=== PATIENT | female | born 1985 | race Hispanic/Latino ===

== ENCOUNTER 2018-04-18 13:47 | Emergency (ER) | payer OTHER ==
[~2018-04-18] VITALS: Ht 157.5 cm; Wt 74.8 kg
--- OUTSIDE RECORDS SUMMARY | 2018-04-18 13:50 | XMS REPORT | Clinical Summary ---
Author Author [facility] Organization [facility] Address Unknown Phone Unavailable Care Team Providers Care Talent Development Analyst Name Role Phone Asked, No Pcp PCP Unavailable Allergies Active Allergy Reactions Severity Noted Date Comments Celecoxib 08/19/2017 Divalproex 11/29/2017 Phenytoin Sodium Extended 08/19/2017 Current Medications Prescription Sig. Disp. Refills Start End Date Status Date buPROPion XL (WELLBUTRIN Take 300 mg by mouth Active XL) 300 MG 24 hr tablet daily. escitalopram (LEXAPRO) 20 Take 20 mg by mouth Active MG tablet daily. levETIRAcetam (KEPPRA) Take 500 mg by mouth 2 Active 500 MG tablet (two) times a day. LORAZepam (ATIVAN) 2 MG Take 2 mg by mouth 3 Active tablet (three) times a day as needed for seizures. Active Problems Problem Noted Date Seizure (HCC) 08/19/2017 Encounters Date Type Specialty Care Team Description 11/30/2017 Orders Only Faisal Chau 11/29/2017 Emergency Emergency Medicine Mindi Shields MD Anxiety (Primary Dx) - 11/30/2017 11/10/2017 Emergency Emergency Medicine Yusuf Hodgson MD Closed head injury, initial encounter (Primary Dx); Drug intoxication without complication 08/19/2017 Emergency General Internal Medicine Alondra Lopez, Seizure (Primary Dx); - Noncompliance with 08/20/2017 Jason Castle MD medication regimen; Drug abuse; Pelvic pain after 04/17/2017 Social History Tobacco Use Types Packs/Day Years Used Date Never Smoker Smokeless Tobacco: Never Used Alcohol Use Drinks/Week oz/Week Comments No Sex Assigned at Date Recorded Not on file Last Filed Vital Signs Vital Sign Reading Time Taken Blood Pressure 91/51 11/30/2017 1:30 AM CDT Pulse 108 11/30/2017 1:30 AM CDT Temperature 37.4 C (99.4 F) 11/29/2017 10:51 PM CDT Respiratory Rate 14 11/30/2017 1:30 AM CDT Oxygen Saturation 96% 11/30/2017 1:30 AM CDT Inhaled Oxygen - - Concentration Weight 68 kg (150 lb) 11/10/2017 1:08 AM CDT Height 154.9 cm (5' 1") 11/29/2017 10:51 PM CDT Body Mass Index 28.34 11/10/2017 1:08 AM CDT Plan of Treatment Health Maintenance Due Date Last Done Comments CERVICAL CANCER SCREENING 2006 INFLUENZA VACCINE 01/08/2018 Procedures Procedure Name Priority Date/Time Associated Diagnosis Comments XR CHEST 1 VW STAT 11/30/2017 Results for this 12:21 AM CDT procedure are in the results section. ECG ED PRELIMINARY Routine 11/29/2017 Results for this INTERPRETATION 11:18 PM CDT procedure are in the results section. TROPONIN Routine 11/29/2017 Results for this 11:10 PM CDT procedure are in the results section. B NATRIURETIC PEPTIDE Routine 11/29/2017 Results for this 11:10 PM CDT procedure are in the results section. CREATINE KINASE, TOTAL Routine 11/29/2017 Results for this (CPK) 11:10 PM CDT procedure are in the results section. ZZESTIMATED GFR Routine 11/29/2017 Results for this 11:10 PM CDT procedure are in the results section. COMPREHENSIVE METABOLIC Routine 11/29/2017 Results for this PANEL 11:10 PM CDT procedure are in the results section. PARTIAL THROMBOPLASTIN Routine 11/29/2017 Results for this TIME (PTT) 11:10 PM CDT procedure are in the results section. PROTHROMBIN TIME WITH INR Routine 11/29/2017 Results for this 11:10 PM CDT procedure are in the results section. HC COMPLETE BLD COUNT Routine 11/29/2017 Results for this W/AUTO DIFF 11:10 PM CDT procedure are in the results section. ECG 12-LEAD STAT 11/29/2017 Results for this 11:02 PM CDT procedure are in the results section. ZZESTIMATED GFR STAT 11/10/2017 Results for this 3:38 AM CDT procedure are in the results section. BASIC METABOLIC PANEL STAT 11/10/2017 Results for this 3:38 AM CDT procedure are in the results section. HC COMPLETE BLD COUNT STAT 11/10/2017 Results for this W/AUTO DIFF 3:38 AM CDT procedure are in the results section. CT HEAD WO CONTRAST STAT 11/10/2017 Results for this 2:23 AM CDT procedure are in the results section. HC COMPLETE BLD COUNT Routine 08/20/2017 Results for this W/AUTO DIFF 6:40 AM CDT procedure are in the results section. HEPATIC FUNCTION PANEL STAT 08/20/2017 Results for this 4:20 AM CDT procedure are in the results section. HEPATITIS C ANTIBODY STAT 08/20/2017 Results for this 4:20 AM CDT procedure are in the results section. HEPATITIS B SURFACE STAT 08/20/2017 Results for this ANTIBODY 4:20 AM CDT procedure are in the results section. HIV 1, 2 ANTIBODY Routine 08/20/2017 Results for this 4:20 AM CDT procedure are in the results section. ZZESTIMATED GFR Routine 08/20/2017 Results for this 4:20 AM CDT procedure are in the results section. BASIC METABOLIC PANEL Routine 08/20/2017 Results for this 4:20 AM CDT procedure are in the results section. AL CRITICAL CARE, E/M Routine 08/19/2017 Results for this 30-74 MINUTES 12:27 PM CDT procedure are in the results section. URINE DRUGS OF ABUSE STAT 08/19/2017 Results for this SCREEN 12:24 PM CDT procedure are in the results section. URINALYSIS SCREEN AND STAT 08/19/2017 Results for this MICROSCOPY, WITH REFLEX 12:24 PM CDT procedure are in the TO CULTURE results section. GRAM STAIN STAT 08/19/2017 Results for this 12:24 PM CDT procedure are in the results section. URINE CULTURE STAT 08/19/2017 Results for this 12:24 PM CDT procedure are in the results section. ZZESTIMATED GFR STAT 08/19/2017 Results for this 12:05 PM CDT procedure are in the results section. ACETAMINOPHEN LEVEL STAT 08/19/2017 Results for this 12:05 PM CDT procedure are in the results section. SALICYLATE LEVEL STAT 08/19/2017 Results for this 12:05 PM CDT procedure are in the results section. ALCOHOL LEVEL, BLOOD STAT 08/19/2017 Results for this 12:05 PM CDT procedure are in the results section. HCG QUALITATIVE, SERUM STAT 08/19/2017 Results for this SCREEN 12:05 PM CDT procedure are in the results section. COMPREHENSIVE METABOLIC STAT 08/19/2017 Results for this PANEL 12:05 PM CDT procedure are in the results section. HC COMPLETE BLD COUNT STAT 08/19/2017 Results for this W/AUTO DIFF 12:05 PM CDT procedure are in the results section. after 04/17/2017 Results * XR Chest 1 Vw (11/30/2017 12:21 AM) Narrative Performed At EXAMINATION: [facility]ST [facility]W [facility] CLINICAL HISTORY: 01/05/2009 chest x-ray COMPARISON:None. IMPRESSION: The lungs are clear. No pleural effusion or pneumothorax. The cardiomediastinal silhouette is normal. No acute osseous abnormalities. [id number] Procedure Note Hm Interface, Radiology Results Incoming - 11/30/2017 12:34 AM CDT EXAMINATION: XR CHEST 1 VW CLINICAL HISTORY: 01/05/2009 chest x-ray COMPARISON: None. IMPRESSION: The lungs are clear. No pleural effusion or pneumothorax. The cardiomediastinal silhouette is normal. No acute osseous abnormalities. [facility]-[id number] Performing Organization Address City/State/Zipcode Phone Number [facility] [address] [place] [address] * ECG ED Preliminary Interpretation - NOT AN ORDER (11/29/2017 11:18 PM) Narrative Performed At Mindi Roque MD 11/30/2017 12:29 AM ECG ED Preliminary Interpretation - Not an Order Performed by: MINDI SHIELDS Authorized by: MINDI SHIELDS ECG reviewed by ED Physician in the absence of a test puller: yes Previous ECG: Previous ECG:Unavailable Interpretation: Interpretation: abnormal Rate: ECG rate:107 ECG rate assessment: tachycardic Rhythm: Rhythm: sinus rhythm Ectopy: Ectopy: none QRS: QRS axis:Normal Conduction: Conduction: normal ST segments: ST segments:Normal * Estimated GFR (11/29/2017 11:10 PM) Only the most recent of 4 results within the time period is included. GFR Non Af Amer >90 mL/min/1.73 m2 [facility] OF PATHOLOGY AND GENOMIC MEDICINE GFR Af Amer >90 mL/min/1.73 m2 [facility] DEPARTMENT OF Comment: PATHOLOGY AND Chronic kidney disease: <60 GENOMIC MEDICINE mL/min/1.73m2 Kidney failure: <15 mL/min/1.73m2 The estimated GFR is calculated from the IDMS-traceable Modification of Diet in Renal Disease Equation. The accuracy of the calculation is poor when the creatinine is normal. Calculated values >90 mL/min/1.73m2 are not reported. This equation has not been validated in children (<18 years), women, the elderly (>70 years), or ethnic groups other than Caucasians and Americans. Specimen Plasma specimen Performing Organization Address [facility] Phone Number [place] [address] [address] [place] [phone] PATHOLOGY AND [employer] [facility] * Troponin (11/29/2017 11:10 PM) Troponin <0.10 0.00 - 0.10 ng/mL [facility] DEPARTMENT OF Comment: PATHOLOGY AND 0.11 - 1.49 GENOMIC MEDICINE ng/mlMay indicate increased risk of acute coronary syndrome. >=1.5 ng/ml Consistent with acute myocardial infarction. The diagnostic value of a single normal or non-diagnostic result is questionable.Serial samples at 2-6 hour intervals are required to rule out acute myocardial injury. Specimen Plasma specimen Performing Organization Address [facility] Phone Number [place] [address] [place] [address] PATHOLOGY AND [employer] * Partial thromboplastin time, activated (11/29/2017 11:10 PM) PTT 30.0 23.0 - 36.0 sec [facility] DEPARTMENT OF Comment: PATHOLOGY AND PTT therapeutic range for [employer] unfractionated heparin is 61.0-112.0 seconds which corresponds to Anti-Xa 0.3-0.7 U/ml. Specimen Blood Performing Organization Address [facility] Phone [place] [address] [facility] [place] [phone] PATHOLOGY AND [employer] * Prothrombin time with INR (11/29/2017 11:10 PM) Prothrombin time 13.7 12.0 - 15.0 sec [facility] OF PATHOLOGY AND [employer] [facility] INR 1.0 [facility]PART[facility] OF Comment: PATHOLOGY AND The International Normalized GENOMIC MEDICINE Ratio (INR) is a therapeutic monitoring tool for patients who are stable on oral anticoagulant therapy. An INR of 2.0-3.0 is suggested for deep vein thrombosis/pulmonary embolism. Specimen Blood Performing Organization Address [facility] Cent[facility] Phone Number [facility] [place] [address]Josh Hughes. [place] [phone] PATHOLOGY AND GENOMIC MEDICINE * CBC with platelet and differential (11/29/2017 11:10 PM) Only the most recent of 4 results within the time period is included. WBC 14.57 (H) 4.50 - 11.00 k/uL [facility] OF PATHOLOGY AND GENOMIC MEDICINE RBC 4.47 4.20 - 5.50 m/uL [facility] OF PATHOLOGY AND GENOMIC MEDICINE HGB 14.9 12.0 - 16.0 g/dL [facility] OF PATHOLOGY AND GENOMIC MEDICINE HCT 42.8 37.0 - 47.0 % [facility] OF PATHOLOGY AND GENOMIC MEDICINE MCV 95.7 82.0 - 100.0 fL [facility] OF PATHOLOGY AND GENOMIC MEDICINE MCH 33.3 27.0 - 34.0 pg [facility] OF PATHOLOGY AND GENOMIC MEDICINE MCHC 34.8 31.0 - 37.0 g/dL [facility] OF PATHOLOGY AND GENOMIC MEDICINE RDW - SD 46.1 37.0 - 55.0 fL [facility] OF PATHOLOGY AND GENOMIC MEDICINE MPV 8.8 8.8 - 13.2 fL [facility] OF PATHOLOGY AND GENOMIC MEDICINE Platelet count 478 (H) 150 - 400 k/uL [facility] OF PATHOLOGY AND GENOMIC MEDICINE Neutrophils 57.5 39.0 - 69.0 % [facility] OF PATHOLOGY AND GENOMIC MEDICINE Lymphocytes 33.3 25.0 - 45.0 % [facility] OF PATHOLOGY AND GENOMIC MEDICINE Monocytes 6.6 0.0 - 10.0 % [facility] OF PATHOLOGY AND GENOMIC MEDICINE Eosinophils 1.6 0.0 - 5.0 % [facility] OF PATHOLOGY AND GENOMIC MEDICINE Basophils 0.5 0.0 - 1.0 % [facility] OF PATHOLOGY AND GENOMIC MEDICINE Immature granulocytes 0.5 0.0 - 1.0 % [facility] OF PATHOLOGY AND GENOMIC MEDICINE Specimen Blood Performing Organization Address City/State/Zipcode Phone Number [facility] [place] [address]Josh Hughes. [place] [phone] PATHOLOGY AND GENOMIC MEDICINE * B natriuretic peptide (11/29/2017 11:10 PM) BNP <3 0 - 100 pg/mL [facility] OF PATHOLOGY AND GENOMIC MEDICINE Performing Organization Address City/[facility]/Zipcode Phone Number [facility] [place] [address]Josh Hughes. [place] [phone] PATHOLOGY AND GENOMIC MEDICINE * Creatine kinase, total (CPK) (11/29/2017 11:10 PM) Creatine kinase 174 35 - 200 U/L [facility] OF PATHOLOGY AND GENOMIC MEDICINE Specimen Plasma specimen Performing Organization Address City/[facility] Centercode Phone Number [facility] [id number]. [place] [phone] PATHOLOGY AND GENOMIC [facility] * Comprehensive metabolic panel (11/29/2017 11:10 PM) Only the most recent of 2 results within the time period is included. Sodium 137 135 - 148 mEq/L [facility] OF PATHOLOGY AND GENOMIC MEDICINE Potassium 3.8 3.5 - 5.0 mEq/L [facility] OF PATHOLOGY AND GENOMIC MEDICINE Chloride 95 (L) 99 - 109 mEq/L [facility] OF PATHOLOGY AND GENOMIC MEDICINE CO2 24 24 - 31 mEq/L [facility] OF PATHOLOGY AND GENOMIC MEDICINE Anion gap 18@ANIO (H) 7 - 15 mEq/L [facility] OF PATHOLOGY AND GENOMIC MEDICINE BUN 22 8 - 24 mg/dL [facility] OF PATHOLOGY AND GENOMIC MEDICINE Creatinine 0.7 0.5 - 1.5 mg/dL [facility] OF PATHOLOGY AND GENOMIC MEDICINE Glucose 110 (H) 65 - 99 mg/dL [facility] OF PATHOLOGY AND GENOMIC MEDICINE Calcium 9.8 8.6 - 10.6 mg/dL [facility] PATHOLOGY AND GENOMIC MEDICINE Protein 8.4 (H) 6.3 - 8.2 g/dL [facility] OF PATHOLOGY AND GENOMIC MEDICINE Albumin 4.0 3.5 - 5.0 g/dL [facility] OF PATHOLOGY AND GENOMIC MEDICINE A/G ratio 0.9 0.7 - 3.8 [facility] OF PATHOLOGY AND GENOMIC MEDICINE Alkaline phosphatase 76 30 - 115 U/L [facility] OF PATHOLOGY AND GENOMIC MEDICINE AST 39 15 - 46 U/L [facility] PATHOLOGY AND GENOMIC MEDICINE ALT 53 10 - 55 U/L [facility] PATHOLOGY AND GENOMIC MEDICINE Total bilirubin 0.7 0.2 - 1.2 mg/dL [facility] PATHOLOGY AND GENOMIC MEDICINE Specimen Plasma specimen Performing Organization Address City/[facility]/Zipcode Phone Number [facility] [place] [address]Josh Hughes. [place] [phone] PATHOLOGY AND GENOMIC MEDICINE * ECG 12 lead (11/29/2017 11:02 PM) Ventricular rate 107 [facility] Atrial rate 107 [facility] AL interval 128 [facility] QRSD interval 84 [facility] QT interval 334 [facility] QTC interval 445 [facility] P axis 1 -4 [facility] QRS axis 1 64 [facility] MUSE T wave axis 24 [facility] MUSE EKG impression Sinus tachycardia-Otherwise [facility] MUSE normal ECG-- Performing Organization Address [facility] Centercode Phone Number [facility] MUSE [address] [place] [address] * Basic metabolic panel (11/10/2017 3:38 AM) Only the most recent of 2 results within the time period is included. Sodium 140 135 - 148 mEq/L [facility] DEPARTMENT OF PATHOLOGY AND GENOMIC MEDICINE Potassium 3.4 (L) 3.5 - 5.0 mEq/L [facility] DEPARTMENT OF PATHOLOGY AND GENOMIC MEDICINE Chloride 106 99 - 109 mEq/L [facility] DEPARTMENT OF PATHOLOGY AND GENOMIC MEDICINE CO2 25 24 - 31 mEq/L [facility] DEPARTMENT OF PATHOLOGY AND GENOMIC MEDICINE Anion gap 9@ANIO 7 - 15 mEq/L [facility] DEPARTMENT OF PATHOLOGY AND GENOMIC MEDICINE BUN 9 8 - 24 mg/dL [facility] DEPARTMENT OF PATHOLOGY AND GENOMIC MEDICINE Creatinine 0.6 0.5 - 1.5 mg/dL [facility] DEPARTMENT OF PATHOLOGY AND GENOMIC MEDICINE Glucose 106 (H) 65 - 99 mg/dL [facility] DEPARTMENT OF PATHOLOGY AND GENOMIC MEDICINE Calcium 8.8 8.6 - 10.6 mg/dL [facility] DEPARTMENT OF PATHOLOGY AND GENOMIC MEDICINE Specimen Plasma specimen Performing Organization Address [facility] Centercomo Phone Number [facility] [address] [facility] [address] [place] [address] PATHOLOGY AND GENOMIC MEDICINE * CT Head Wo Contrast (11/10/2017 2:23 AM) Narrative Performed At Examination:CT HEAD WO CONTRAST RADIANT Clinical History: Stabbed on the top of her headseizure Comparison: None. CT scan of the brain was performed without intravenous contrast. CT scans are performed using radiation dose reduction techniques.Technical factors are evaluated and adjusted to ensure appropriate moderation of exposure.Automated dose management technology is applied to adjust radiation exposure while achieving a diagnostic quality image. No mass effect or midline shift is seen. The ventricles are normal in size. No intracranial hemorrhage is seen. The visualized bony structures shows no acute abnormality. Bourgeois-white junctions are preserved. IMPRESSION: 1. No acute or focal intracranial abnormality identified. [facility]-[id number] Procedure Note Interface, Radiology Results Incoming - 11/10/2017 3:57 AM CDT Examination: CT HEAD WO CONTRAST Clinical History: Stabbed on the top of her head seizure Comparison: None. CT scan of the brain was performed without intravenous contrast. CT scans are performed using radiation dose reduction techniques. Technical factors are evaluated and adjusted to ensure appropriate moderation of exposure. Automated dose management technology is applied to adjust radiation exposure while achieving a diagnostic quality image. No mass effect or midline shift is seen. The ventricles are normal in size. No intracranial hemorrhage is seen. The visualized bony structures shows no acute abnormality. Bourgeois-white junctions are preserved. IMPRESSION: 1. No acute or focal intracranial abnormality identified. [facility]-[id number] Performing Organization Address [facility]/[place] [address] * Hepatitis C antibody (08/20/2017 4:20 AM) Hepatitis C Ab Non-reactive Non-reactive [facility] DEPARTMENT OF PATHOLOGY AND GENOMIC MEDICINE Specimen Blood Performing Organization Address [facility] [place] [address] PATHOLOGY AND GENOMIC MEDICINE * HIV 1, 2 antibody (08/20/2017 4:20 AM) HIV 1, 2 antibody Non-reactive Non-reactive [facility] DEPARTMENT OF PATHOLOGY AND GENOMIC MEDICINE Specimen Blood Performing Organization Address [facility] Centercode Phone Number [address] [address] PATHOLOGY AND GENOMIC MEDICINE * Hepatitis B surface antibody (08/20/2017 4:20 AM) Hepatitis B surface Ab Reactive (A) Non-reactive [facility] DEPARTMENT OF PATHOLOGY AND GENOMIC MEDICINE Specimen Blood Performing Organization Address [facility] Centercode Phone Number [facility] [address] [place] [address] PATHOLOGY AND GENOMIC MEDICINE * Hepatic function panel (08/20/2017 4:20 AM) Albumin 3.3 (L) 3.5 - 5.0 g/dL [facility] DEPARTMENT OF PATHOLOGY AND GENOMIC MEDICINE Total bilirubin <0.2 0.2 - 1.2 mg/dL [facility] DEPARTMENT OF PATHOLOGY AND GENOMIC MEDICINE Bilirubin direct <0.2 0.0 - 0.4 mg/dL [facility] DEPARTMENT OF PATHOLOGY AND GENOMIC MEDICINE Alkaline phosphatase 64 30 - 115 U/L [facility] DEPARTMENT OF PATHOLOGY AND GENOMIC MEDICINE Protein 6.5 6.3 - 8.2 g/dL [facility] DEPARTMENT OF PATHOLOGY AND GENOMIC MEDICINE ALT 21 10 - 55 U/L [facility] DEPARTMENT OF PATHOLOGY AND GENOMIC MEDICINE AST 25 15 - 46 U/L [facility] DEPARTMENT OF PATHOLOGY AND GENOMIC MEDICINE Specimen Plasma specimen Performing Organization Address City/State/Zipcode Phone Number [facility] [address] [facility] 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 failure or compromise Critical care was time spent personally by me on the following activities:Development of treatment plan with patient or surrogate, discussions with consultants, discussions with primary provider, evaluation of patient's response to treatment, examination of patient, obtaining history from patient or surrogate, review of old charts, re-evaluation of patient's condition, pulse oximetry, ordering and review of radiographic studies, ordering and review of laboratory studies and ordering and performing treatments and interventions José Miguel 'yes' if you are taking over critical care for this patient from another provider.: no * Urinalysis screen and microscopy, with reflex to culture (08/19/2017 12:24 PM) Specimen site Clean catch [facility] DEPARTMENT OF PATHOLOGY AND GENOMIC MEDICINE Color, UA Yellow YELLOW [facility] DEPARTMENT OF PATHOLOGY AND GENOMIC MEDICINE Appearance, UA Hazy (A) Clear [facility] DEPARTMENT OF PATHOLOGY AND GENOMIC MEDICINE Specific gravity, UA 1.017 1.005 - 1.030 [facility] DEPARTMENT OF PATHOLOGY AND GENOMIC MEDICINE pH, UA 5.5 5.0 - 8.0 [facility] DEPARTMENT OF PATHOLOGY AND GENOMIC MEDICINE Protein, UA Trace (A) Negative [facility]MENT OF PATHOLOGY AND GENOMIC MEDICINE Glucose, UA Negative Negative [facility]MENT OF PATHOLOGY AND GENOMIC MEDICINE Ketones, UA Negative Negative [facility]MENT OF PATHOLOGY AND GENOMIC MEDICINE Bilirubin, UA Negative Negative [facility] DEPARTMENT OF PATHOLOGY AND GENOMIC MEDICINE Blood, UA Negative Negative [facility] DEPARTMENT OF PATHOLOGY AND GENOMIC MEDICINE Nitrite, UA Negative NEGATIVE [facility] DEPARTMENT OF PATHOLOGY AND GENOMIC MEDICINE Urobilinogen, UA <2.0 <2.0 E.U./dL [facility] DEPARTMENT OF PATHOLOGY AND GENOMIC MEDICINE Leukocyte esterase, UA Large (A) Negative [facility] DEPARTMENT OF PATHOLOGY AND GENOMIC MEDICINE Epithelial cells, UA 2 0 - 15 /HPF [facility] DEPARTMENT OF PATHOLOGY AND GENOMIC MEDICINE WBC, UA >200 (H) 0 - 5 /Hpf [facility] DEPARTMENT OF PATHOLOGY AND GENOMIC MEDICINE RBC, UA 3 0 - 5 /HPF [facility] DEPARTMENT OF PATHOLOGY AND GENOMIC MEDICINE Bacteria, UA None seen None seen [facility] DEPARTMENT OF PATHOLOGY AND GENOMIC MEDICINE Yeast, UA None seen None Seen [facility] DEPARTMENT OF PATHOLOGY AND GENOMIC MEDICINE Yeast with pseudohyphae, None seen [facility] DEPARTMENT [facility] PATHOLOGY AND GENOMIC MEDICINE Specimen Urine Performing Organization Address City/[facility] Centercode Phone Number [address] [place] [address] PATHOLOGY AND GENOMIC MEDICINE * Urine drugs of abuse screen (08/19/2017 12:24 PM) Amphetamine screen, urine Positive (A) [facility] DEPARTMENT OF PATHOLOGY AND GENOMIC MEDICINE Barbiturate screen, urine Negative [facility] OF PATHOLOGY AND GENOMIC MEDICINE Benzodiazepine screen, Negative [facility] DEPARTMENT OF urine PATHOLOGY AND GENOMIC MEDICINE Cannabinoid screen, urine Positive (A) [facility] DEPARTMENT OF PATHOLOGY AND GENOMIC MEDICINE Cocaine screen, urine Negative [facility] DEPARTMENT OF PATHOLOGY AND GENOMIC MEDICINE Methadone metabolite Negative [facility] DEPARTMENT OF (EDDP), urine PATHOLOGY AND GENOMIC MEDICINE Opiates screen, urine Negative [facility] DEPARTMENT OF PATHOLOGY AND GENOMIC MEDICINE Oxycodone screen, urine Negative [facility] DEPARTMENT OF PATHOLOGY AND GENOMIC MEDICINE Phencyclidine screen, Negative [facility] DEPARTMENT OF urine PATHOLOGY AND GENOMIC MEDICINE Tricyclic screen, urine Negative [facility] DEPARTMENT OF Comment: PATHOLOGY AND Drug screen minimum GENOMIC MEDICINE concentration of detectability Amphetamines 1000 ng/mL Barbiturates 200 ng/mL Benzodiazepines 300 ng/mL Cocaine 300 ng/mL Methadone 300 ng/mL Opiates 300 ng/mL Oxycodone 300 ng/mL Phencyclidine 25 ng/mL Cannabinoids 50 ng/mL Tricyclics 1000 ng/mL Negative test results indicates presumptive evidence of lack of clinically significant drug concentration in this urine specimen. Positive test results are presumptive evidence of clinically significant drug concentration in this urine specimen. Testing performed for medical purposes only. Specimen Urine Performing Organization Address City/State/Zipcode Phone Number [address] [place] [address] PATHOLOGY AND GENOMIC MEDICINE * Gram stain (08/19/2017 12:24 PM) Gram stain result Moderate WBC's [facility] DEPARTMENT OF Occasional Gram negative rods PATHOLOGY AND Comment: GENOMIC MEDICINE Specimen Information Specimen Source: Urine Specimen Site: Clean catch Specimen Urine Performing Organization Address City/State/Zipcode Phone Number [facility] DEPARTMENT OF [address] [place] [address] PATHOLOGY AND GENOMIC MEDICINE * Urine culture (08/19/2017 12:24 PM) Urine culture isolate Escherichia coli [facility] DEPARTMENT OF >10-5 cfu/ml PATHOLOGY AND (A) GENOMIC MEDICINE Comment: Specimen Information Specimen Source: Urine Specimen Site: Clean catch Specimen Urine Organism Antibiotic Method Susceptibility Escherichia coli Ampicillin SONYA <=2 mcg/mL: Susceptible Escherichia coli Amoxicillin/Clavulanate SONYA <=2/1 mcg/mL: Susceptible Escherichia coli Amikacin SONYA <=4 mcg/mL: Susceptible Escherichia coli Aztreonam SONYA <=1 mcg/mL: Susceptible Escherichia coli Ceftazidime SONYA <=0.5 mcg/mL: Susceptible Escherichia coli Ciprofloxacin SONYA <=0.5 mcg/mL: Susceptible Escherichia coli Ceftriaxone SONYA <=0.5 mcg/mL: Susceptible Escherichia coli Cefuroxime Sodium SONYA <=4 mcg/mL: Susceptible Escherichia coli Cefazolin SONYA <=1 mcg/mL: Susceptible Escherichia coli Cefepime SONYA <=0.5 mcg/mL: Susceptible Escherichia coli Nitrofurantoin SONYA <=16 mcg/mL: Susceptible Escherichia coli Cefoxitin SONYA <=4 mcg/mL: Susceptible Escherichia coli Gentamicin SONYA <=1 mcg/mL: Susceptible Escherichia coli Imipenem SONYA <=0.25 mcg/mL: Susceptible Escherichia coli Levofloxacin SONYA <=1 mcg/mL: Susceptible Escherichia coli Meropenem SONYA <=0.125 mcg/mL: Susceptible Escherichia coli Tobramycin SONYA 1 mcg/mL: Susceptible Escherichia coli Ampicillin/Sulbactam SONYA 2/1 mcg/mL: Susceptible Escherichia coli Trimethoprim/Sulfamethoxa SONYA <=0.5/9.5 mcg/mL: zole Susceptible Escherichia coli Tetracycline SONYA <=1 mcg/mL: Susceptible Escherichia coli Piperacillin/Tazobactam SONYA <=2/4 mcg/mL: Susceptible Escherichia coli Ertapenem SONYA <=0.125 mcg/mL: Susceptible Escherichia coli Tigecycline SONYA <=0.5 mcg/mL: Susceptible Performing Organization Address City/State/[facility] Phone Number [facility] DEPARTMENT OF [address] [place] [address] PATHOLOGY AND GENOMIC MEDICINE * hCG qualitative, serum screen (08/19/2017 12:05 PM) hCG qualitative, serum NegativeComment: Sensitivity: [facility] DEPARTMENT OF 10 mlUhCG/mL in Serum PATHOLOGY AND GENOMIC MEDICINE Specimen Blood Performing Organization Address [facility] Phone Number [facility] DEPARTMENT [address] [place] [address] PATHOLOGY AND GENOMIC MEDICINE * Alcohol level, blood (08/19/2017 12:05 PM) Alcohol None Detected mg/dl [facility] DEPARTMENT OF PATHOLOGY AND GENOMIC MEDICINE Alcohol percent None Detected 0.00 - 0.08 % [facility] DEPARTMENT OF Comment: PATHOLOGY AND Normal GENOMIC MEDICINE None Detected Legal Intoxication in [place]80 mg/dL (0.08%) - Whole Blood Toxic Concentration 200 mg/dL (0.2%) Potentially Fatal3 50 - 500 mg/dL (0.35 - 0.5%) Specimen Plasma specimen Performing Organization Address [facility] Phone Number [facility] DEPARTMENT [address] [place] [address] PATHOLOGY AND GENOMIC MEDICINE * Acetaminophen level (08/19/2017 12:05 PM) Acetaminophen level <15.0 10.0 - 30.0 ug/mL [facility] DEPARTMENT OF PATHOLOGY AND GENOMIC MEDICINE Specimen Plasma specimen Performing Organization Address [facility] Phone Number [facility] [place] [address] PATHOLOGY AND GENOMIC MEDICINE * Salicylate level (08/19/2017 12:05 PM) Salicylate <0.3 (L) 5.0 - 30.0 mg/dL [facility] DEPARTMENT OF Comment: PATHOLOGY AND Therapeutic Range: GENOMIC MEDICINE 5 - 30 mg/dL Specimen Plasma specimen Performing Organization Address [facility] Phone Number [facility] DEPARTMENT [address] [place] [address] PATHOLOGY AND GENOMIC MEDICINE after 04/17/2017 Insurance Payer Benefit Subscriber ID Type Phone Address Plan / Group [employer] xxxxxxxxx O [employer]
--- OUTSIDE RECORDS SUMMARY | 2018-04-18 13:50 | XMS REPORT | Clinical Summary ---
Author Author [facility] Organization [facility] Address Unknown Phone Unavailable Care Team Providers Care Payroll Technician Name Role Phone PCP Unavailable Allergies Active Allergy Reactions Severity Noted Date Comments Divalproex 02/14/2018 Phenytoin Breathing problems 08/19/2015 Hydromorphone (Bulk) Hives, Breathing problems 02/22/2015 Lamotrigine Rash 10/18/2016 Carbamazepine 02/14/2018 Current Medications Prescription Sig. Disp. Refills Start End Date Status Date triamcinolone (KENALOG) Apply to affected area 2 15 g 0 08/08/19 Active 0.025 % topical times daily. 16 creamIndications: Rash and nonspecific skin eruption acetaminophen-codeine Take 1 tablet by mouth 2 60 tablet 3 08/19/19 Active (TYLENOL/CODEINE #3) times daily as needed for 16 300-30 mg per Pain Ok to fill on 08/18, tabletIndications: 09/18, 10/18.. Sacroiliac joint dysfunction of both sides loratadine (CLARITIN) 10 Take 1 tablet by mouth 90 tablet 0 12/08/19 Active mg tabletIndications: daily. 16 Redness of eye, right prazosin (MINIPRESS) 2 mg Take 1 capsule by mouth 60 capsule 2 11/03/19 Active capsuleIndications: PTSD at bedtime nightly. 17 (post-traumatic stress disorder) acyclovir (ZOVIRAX) 800 Take 1 tablet by mouth 5 35 tablet 0 03/06/20 Active mg tabletIndications: times daily For 7 days. 17 Shingles rash buPROPion (WELLBUTRIN XL) Take 1 tablet by mouth 30 tablet 1 05/10/20 Active 300 mg extended release every morning. 17 tabletIndications: Mood disorder escitalopram oxalate Take 1 tablet by mouth 30 tablet 1 05/10/20 Active (LEXAPRO) 20 mg daily. 17 tabletIndications: Mood disorder, PTSD (post-traumatic stress disorder) hydrOXYzine (ATARAX) 50 Take 1 tablet by mouth 3 90 tablet 0 03/22/20 04/27/20 Discontin mg tablet times daily as needed for 17 17 ued Itching. buPROPion (WELLBUTRIN XL) Take 1 tablet by mouth 30 tablet 0 03/22/20 04/27/20 Discontin 300 mg extended release every morning 17 17 ued tablet escitalopram oxalate Take 1 tablet by mouth 30 tablet 0 03/22/20 04/27/20 Discontin (LEXAPRO) 20 mg daily. 17 17 ued tabletIndications: PTSD (post-traumatic stress disorder) hydrOXYzine (ATARAX) 50 Take 1 tablet by mouth 3 90 tablet 0 04/29/20 05/10/20 Discontin mg tabletIndications: times daily as needed for 17 17 ued Mood disorder up to 30 days for Itching or Anxiety. buPROPion (WELLBUTRIN XL) Take 1 tablet by mouth 30 tablet 0 04/29/20 05/10/20 Discontin 300 mg extended release every morning 17 17 ued tabletIndications: Mood disorder escitalopram oxalate Take 1 tablet by mouth 30 tablet 0 04/29/20 05/10/20 Discontin (LEXAPRO) 20 mg daily. 17 17 ued tabletIndications: PTSD (post-traumatic stress disorder) buPROPion (WELLBUTRIN XL) Take 1 tablet by mouth 30 tablet 0 05/10/20 05/10/20 Discontin 300 mg extended release every morning 17 17 ued tabletIndications: Mood disorder escitalopram oxalate Take 1 tablet by mouth 30 tablet 0 05/10/20 05/10/20 Discontin (LEXAPRO) 20 mg daily. 17 17 ued tabletIndications: PTSD (post-traumatic stress disorder) gabapentin (NEURONTIN) Take 1 capsule by mouth 3 90 capsule 0 05/10/20 05/10/20 Discontin 300 mg times daily for 30 days. 17 17 ued capsuleIndications: Mood disorder gabapentin (NEURONTIN) Take 1 capsule by mouth 3 42 capsule 0 05/10/20 05/27/20 300 mg times daily for 14 days. 17 17 capsuleIndications: Mood disorder Levetiracetam (KEPPRA) Take 1 tablet by mouth 2 60 tablet 0 02/16/20 03/17/20 1,000 mg times daily for 30 days. 18 18 tabletIndications: Seizures cefpodoxime (VANTIN) 100 Take 1 tablet by mouth 2 20 tablet 0 02/17/20 02/27/20 mg tabletIndications: times daily for 10 days. 18 18 Urinary tract infection without hematuria, site unspecified Active Problems Problem Noted Date Anxiety 08/12/2015 Gingivitis 08/09/2015 Psychogenic nonepileptic seizure 06/14/2015 PTSD (post-traumatic stress disorder) 04/14/2015 Seizures 02/22/2015 Encounters Date Type Specialty Care Team Description 02/14/2018 Emergency Emergency Medicine Joseph Miller MD Seizures (Primary Dx); - Manny Wolf MD Tachycardia; 02/15/2018 Urinary tract infection without hematuria, site unspecified 08/27/2017 Pharmacy Visit 08/12/2017 Pharmacy Visit 08/09/2017 Pharmacy Visit 08/08/2017 Pharmacy Visit 05/24/2017 Office Visit Psychiatry Guillaume Ring, Psychiatric problem ResidentMD (Primary Dx) 05/13/2017 Pharmacy Visit 05/13/2017 Pharmacy Visit 05/10/2017 Office Visit Psychiatry Julio Grant, Mood disorder; ResidentMD PTSD (post-traumatic stress disorder) 05/06/2017 Refill Family Practice Rosalie Cordova, Mood disorder; 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 PTSD (post-traumatic stress disorder) 04/30/2017 Pharmacy Visit 04/29/2017 Pharmacy Visit 04/27/2017 Refill Psychiatry Jeremi Shelton MD Mood disorder (Primary Dx); PTSD (post-traumatic stress disorder) after 04/17/2017 Immunizations Name Dates Previously Given Next Due Influenza Vaccine 07/13/2016 PPD 10/31/2015 Family History Medical History Relation Name Comments Arthritis Brother Diabetes Father Heart Father Hypertension Father Asthma Mother Diabetes Mother Hypertension Mother Asthma Sister Relation Name Status Comments Brother Alive Brother Father Alive Mother Alive Sister Alive Sister Social History Tobacco Use Types Packs/Day Years Used Date Former Smoker Cigarettes Smokeless Tobacco: Never Used Tobacco Cessation: Counseling Given: No Alcohol Use Drinks/Week oz/Week Comments Yes 2-3 Cans of 1.0 - 1.5 occassionally beer Sex Assigned at Date Recorded Not on file Last Filed Vital Signs Vital Sign Reading Time Taken Blood Pressure 93/66 02/15/2018 8:15 PM CDT Pulse 93 02/15/2018 8:15 PM CDT Temperature 37.1 C (98.7 F) 02/15/2018 8:15 PM CDT Respiratory Rate 15 02/15/2018 8:15 PM CDT Oxygen Saturation 99% 02/15/2018 8:15 PM CDT Inhaled Oxygen - - Concentration Weight 84.8 kg (187 lb) 05/24/2017 2:49 PM [employer]EV[employer]OR[employer]PER[employer] Height 154.9 cm (5' 1") 05/24/2017 2:49 PM [employer]OR[employer] SUPERVIS[employer] Body Mass Index 35.33 05/24/2017 2:49 PM [employer]PERVIS[employer] Plan of Treatment Health Maintenance Due Date Last Done Comments Cervical Cancer Scrn (3 02/24/2018 02/24/2015 Yrs) Goals Patient Goal Type Goal Recent Progress Patient-Stat Author ed? Diet Eat more fruits and No Jolley, vegetables Mary Y Diet Reduce portion size No Jolley, Mary Y Procedures Procedure Name Priority Date/Time Associated Diagnosis Comments CT CHEST PE PROTOCOL STAT 02/15/2018 Tachycardia Results for this 7:52 PM CDT procedure are in the results section. D-DIMER STAT 02/15/2018 Results for this 4:56 PM CDT procedure are in the results section. VBG POC Routine 02/15/2018 Results for this 12:31 PM CDT procedure are in the results section. FREE T4 STAT 02/15/2018 Results for this 12:20 PM CDT procedure are in the results section. TSH STAT 02/15/2018 Results for this 12:20 PM CDT procedure are in the results section. GLUCOSE POC Routine 02/15/2018 Results for this 9:32 AM CDT procedure are in the results section. VBG POC Routine 02/15/2018 Results for this 9:27 AM CDT procedure are in the results section. UA CHEMISTRIES STAT 02/15/2018 Results for this 8:40 AM CDT procedure are in the results section. URINE CULTURE Routine 02/15/2018 Results for this 8:35 AM CDT procedure are in the results section. POCT URINE DIPSTICK - STAT 02/14/2018 Results for this 8:14 PM CDT procedure are in the results section. CT HEAD W/O CONTRAST STAT 02/14/2018 Seizures Results for this 8:13 PM CDT procedure are in the results section. UA CHEMISTRIES STAT 02/14/2018 Results for this 8:05 PM CDT procedure are in the results section. XRAY CHEST 1 VIEW STAT 02/14/2018 Seizures Results for this 7:55 PM CDT procedure are in the results section. BMP POC Routine 02/14/2018 Results for this 7:46 PM CDT procedure are in the results section. GLUCOSE POC Routine 02/14/2018 Results for this 7:40 PM CDT procedure are in the results section. CBC/DIFF STAT 02/14/2018 Results for this 7:40 PM CDT procedure are in the results section. after 04/17/2017 Results * CT CHEST PE PROTOCOL (02/15/2018 7:52 PM) Impressions Performed At IMPRESSION: SMS No pulmonary emboli. This study was interpreted using a trial standardized lexicon for radiologist confidence. Standardized lexicon lay for acute positive findings: ER 1--"consistent with" or "compatible with" >90%, ER 2--"suspicious for" or "probably" or "likely" ~75%, ER 3--"possible/possibly" ~50%, ER 4--"less likely"~25%, ER 5--"unlikely" or "not excluded" <10% Dictated By: Laurel Bowman MD, 02/15/2018 8:02 PM I have reviewed the study and agree with the findings in this report. Signed By: Ladan Velarde MD, 02/15/2018 8:25 PM Narrative Performed At EXAM: CT CHEST PE PROTOCOL SMS INDICATION: tachycardia COMPARISON: None TECHNIQUE: Chest was scanned utilizing a multidetector helical scanner from the lung apex through the level of the adrenal glands without administration of IV contrast. Coronal and sagittal reformations were obtained. Chest PE protocol was performed. COMPLICATIONS: None RADIATION DOSE: Total DLP: 429 mGy*cm Estimated effective dose: (DLP x 0.014 x size factor) mSv CTDIvol has been reviewed. It is below the limits set by the Radiation Protocol Committee (RPC). FINDINGS: LINES/ TUBES: None. LUNGS/AIRWAYS, PLEURA: No filling defect of the main and bilateral pulmonary arteries up to the segmental levels. The lungs are unremarkable.The pleural spaces are clear. HEART AND MEDIASTINUM: Minimal residual thymus in the anterior mediastinum. No mediastinal, hilar or axillary lymphadenopathy.The heart is normal in size.. There is no pericardial effusion. UPPER ABDOMEN: Unremarkable BONES: The visualized bony thorax is within normal limits. Procedure Note Interface, Rad/Mammog In - 02/15/2018 8:30 PM CDT EXAM: CT CHEST PE PROTOCOL INDICATION: tachycardia COMPARISON: None TECHNIQUE: Chest was scanned utilizing a multidetector helical scanner from the lung apex through the level of the adrenal glands without administration of IV contrast. Coronal and sagittal reformations were obtained. Chest PE protocol was performed. COMPLICATIONS: None RADIATION DOSE: Total DLP: 429 mGy*cm Estimated effective dose: (DLP x 0.014 x size factor) mSv CTDIvol has been reviewed. It is below the limits set by the Radiation Protocol Committee (RPC). FINDINGS: LINES/ TUBES: None. LUNGS/AIRWAYS, PLEURA: No filling defect of the main and bilateral pulmonary arteries up to the segmental levels. The lungs are unremarkable. The pleural spaces are clear. HEART AND MEDIASTINUM: Minimal residual thymus in the anterior mediastinum. No mediastinal, hilar or axillary lymphadenopathy. The heart is normal in size.. There is no pericardial effusion. UPPER ABDOMEN: Unremarkable BONES: The visualized bony thorax is within normal limits. IMPRESSION IMPRESSION: No pulmonary emboli. This study was interpreted using a trial standardized lexicon for radiologist confidence. Standardized lexicon lay for acute positive findings: ER 1--"consistent with" or "compatible with" >90%, ER 2--"suspicious for" or "probably" or "likely" ~75%, ER 3--"possible/possibly" ~50%, ER 4--"less likely"~25%, ER 5--"unlikely" or "not excluded" <10% Dictated By: Laurel Bowman MD, 02/15/2018 8:02 PM I have reviewed the study and agree with the findings in this report. Signed By: Ladan Velarde MD, 02/15/2018 8:25 PM Performing Organization Address City/State/Zipcode Phone Number SMS * D-DIMER (02/15/2018 4:56 PM) D-Dimer 0.65 ug/mL,FEU BT MAIN-STATION 3 Comment: Values of quantitative d-Dimer less than 0.40 ug/mL FEU have been reported to be associated with a low probability of deep vein thrombosis/pulmonary embolism. This test alone should not be used to rule out DVT/PE. Specimen Blood Performing Organization Address City/[facility] Phone Number MISYS BT [facility] 3 * VBG POC (02/15/2018 12:31 PM) Only the most recent of 2 results within the time period is included. pH, Dax POC 7.37 7.33 - 7.43 BT [facility] 1 pCO2, Dax POC 45.0 38.0 - 50.0 mm Hg BT [facility] 1 pO2, Dax POC 20 (L) 50 - 75 mm Hg BT [facility] 1 Base Excess, Dax POC 1 mmol/L BT [facility] 1 HCO3, Dax POC 26.2 (H) 22.0 - 26.0 mmol/L BT [facility]IN[facility]STATION 1 % Sat, Dax POC 29 (L) 60 - 85 % BT [facility]IN[facility] 1 Lactic Acid, Dax POC 0.76 0.4 - 2.0 mmol/L BT [facility]IN-[facility] 1 TCO2, DAX POC 28 21 - 32 mmol/L BT [facility]IN-[facility] 1 Performing Organization Address [facility] Phone Number MISYS BT [facility]IN-ST[facility] 1 * TSH (02/15/2018 12:20 PM) TSH 1.44 0.57 - 3.74 uIU/mL BT [facility]IN-[facility]ATION 1 Specimen Blood Performing Organization Address [facility] Phone Number MISYS MAIN-STATION 1 * FREE T4 (02/15/2018 12:20 PM) Free T4 0.79 0.61 - 1.18 ng/dl BT [facility]IN[facility] 1 Comment: females: 1st Trimester-0.52-1.10 ng/dL 2nd Trimester=0.45-0.99 ng/dL 3rd Trimester=0.48-0.95 ng/dL Specimen Blood Performing Organization Address [facility] Phone Number MISYS BT [facility] 1 * GLUCOSE POC (02/15/2018 9:32 AM) Only the most recent of 2 results within the time period is included. Glucose POC 90 74 - 106 mg/dL BT [facility]IN-[facility]ATION 1 Performing Organization Address [facility] Phone Number MISYS [facility] 1 * UA CHEMISTRIES (02/15/2018 8:40 AM) Only the most recent of 2 results within the time period is included. Color Yellow BT MAIN-STATION 3 Clarity Hazy BT MAIN[facility]ST[facility] 3 Spec Cass 1.025 1.001 - 1.035 BT MAIN-STATION 3 pH 7.0 5 - 8 BT MAIN-[facility]ATION 3 Protein 1+ (A) NEG BT MAIN-STATION 3 Glucose Negative NEG BT MAIN-STATION 3 Ketone Negative NEG BT MAIN-STATION 3 Bilirubin Negative NEG BT MAIN-STATION 3 Nitrate Negative NEG BT MAIN-[facility]ATION 3 Urobilinogen <1.0 0.2 - 1.0 EU/dL BT MAIN-STATION 3 Leukocyte 3+ (A) NEG BT MAIN-STATION 3 Blood Negative NEG BT MAIN-[facility] 3 RBC 4 0 - 4 /HPF BT MAIN-STATION 3 WBC 115 (H) 0 - 5 /HPF BT MAIN-STATION 3 WBC Clumps Few BT MAIN-STATION 3 Bacteria Moderate BT MAIN-STATION 3 Epithelial Cell 8 /HPF BT MAIN-STATION 3 Mucous Present BT MAIN-[facility] 3 Hyaline Cast 1 /LPF BT MAIN-STATION 3 Specimen Urine Performing Organization Address [facility] Phone Number MISYS BT MAIN-STATION 3 * URINE CULTURE (02/15/2018 8:35 AM) Spec Description Clean catch urine BT MICROBIOLOGY Order Comments None BT MICROBIOLOGY Culture Skin portia organisms BT MICROBIOLOGY Report Status Final 02/17/2018 BT MICROBIOLOGY Specimen Urine clean catch Performing Organization Address [facility] Phone Number MISYS BT MICROBIOLOGY * POCT URINE DIPSTICK - (02/14/2018 8:14 PM) Control Present Negative * CT HEAD W/O CONTRAST (02/14/2018 8:13 PM) Impressions Performed At IMPRESSION: SMS No intracranial no mass or hemorrhage. No change compared to the head CT from 08/04/2015. If the report is "FINALIZED" it indicates that the attending/staff radiologist has reviewed the images and agrees with the resident's interpretation. Dictated By: Afshin Herndon DO, 02/14/2018 9:37 PM I have reviewed the study and agree with the findings in this report. Signed By: Shala Albarado MD, 02/14/2018 9:58 PM Narrative Performed At Exam: Head CT without contrast SMS History: seizure, hit head, r/o bleed or mass Comparison studies: Head CT 08/04/2015 Technique: Axial scans were obtained from skull base to the vertex. Coronal and sagittal reconstructions obtained from the axial data. Radiation Dose: Total DLP: 787 mGy*cm. Estimated Effective Dose: DLP x 0.0021 mSv FINDINGS: Scalp/Skull: No abnormalities. Brain sulci: Appropriate for patient's age. Ventricles: Normal in size and configuration. No hydrocephalus. Extra-axial spaces: No masses or fluid collections. Parenchyma: No abnormal densities. No masses, hemorrhage or acute or chronic cortical insults. Dural sinuses: No abnormal densities. Sellar/Suprasellar region: Intact. Skull base and Craniocervical junction: Intact. Procedure Note Interface, Rad/Mammog In - 02/14/2018 10:03 PM CDT Exam: Head CT without contrast History: seizure, hit head, r/o bleed or mass Comparison studies: Head CT 08/04/2015 Technique: Axial scans were obtained from skull base to the vertex. Coronal and sagittal reconstructions obtained from the axial data. Radiation Dose: Total DLP: 787 mGy*cm. Estimated Effective Dose: DLP x 0.0021 mSv FINDINGS: Scalp/Skull: No abnormalities. Brain sulci: Appropriate for patient's age. Ventricles: Normal in size and configuration. No hydrocephalus. Extra-axial spaces: No masses or fluid collections. Parenchyma: No abnormal densities. No masses, hemorrhage or acute or chronic cortical insults. Dural sinuses: No abnormal densities. Sellar/Suprasellar region: Intact. Skull base and Craniocervical junction: Intact. IMPRESSION IMPRESSION: No intracranial no mass or hemorrhage. No change compared to the head CT from 08/04/2015. If the report is "FINALIZED" it indicates that the attending/staff radiologist has reviewed the images and agrees with the resident's interpretation. Dictated By: Afshin Herndon DO, 02/14/2018 9:37 PM I have reviewed the study and agree with the findings in this report. Signed By: Shala Albarado MD, 02/14/2018 9:58 PM Performing Organization Address City/State/Zipcode Phone Number SMS * XRAY CHEST 1 VIEW (02/14/2018 7:55 PM) Impressions Performed At IMPRESSION: [facility] No acute thoracic abnormality. Dictated By: Afshin Herndon DO, 02/14/2018 10:25 PM I have reviewed the study and agree with the findings in this report. Signed By: Ladan Velarde MD, 02/14/2018 10:59 PM Narrative Performed At EXAM: XRAY CHEST 1 VIEW, portable AP [facility] DATE: 02/14/2018 7:59 PMTime stamp on exam: 753 INDICATION: seizure, r/o pneumonia COMPARISON: None FINDINGS: LINES/TUBES: None LUNGS: Low lung volumes without consolidations or edema. PLEURA: No effusions or pneumothorax. HEART AND MEDIASTINUM: Normal size and contour. BONES AND SOFT TISSUES: No acute findings. Procedure Note Interface, Rad/Mammog In - 02/14/2018 11:04 PM CDT EXAM: XRAY CHEST 1 VIEW, portable AP DATE: 02/14/2018 7:59 PM Time stamp on exam: 753 INDICATION: seizure, r/o pneumonia COMPARISON: None FINDINGS: LINES/TUBES: None LUNGS: Low lung volumes without consolidations or edema. PLEURA: No effusions or pneumothorax. HEART AND MEDIASTINUM: Normal size and contour. BONES AND SOFT TISSUES: No acute findings. IMPRESSION IMPRESSION: No acute thoracic abnormality. Dictated By: Afshin Herndon DO, 02/14/2018 10:25 PM I have reviewed the study and agree with the findings in this report. Signed By: Ladan Velarde MD, 02/14/2018 10:59 PM Performing Organization Address City/State/Zipcode Phone Number SMS * BMP POC (02/14/2018 7:46 PM) CO2 POC 26 21 - 32 mmol/L BT MAIN-STATION 1 Chloride POC 100 98 - 107 mmol/L BT MAIN[facility]STATION 1 Potassium POC 3.6 3.50 - 5.10 mmol/L BT MAIN[facility]ATION 1 Sodium POC 140 136 - 145 mmol/L BT MAIN[facility]ATION 1 Glucose POC 73 (L) 74 - 106 mg/dL BT [facility]IN[facility] 1 Urea Nitrogen POC 7 7 - 18 mg/dL BT MAIN[facility]ATION 1 Creatinine POC 0.6 0.6 - 1.3 mg/dL BT MAIN[facility] 1 Calcium Ionized POC 1.18 1.15 - 1.29 mmol/L BT [facility]IN[facility] 1 Hemoglobin POC 14.3 12.0 - 16.0 g/dL BT MAIN[facility]ATION 1 Hematocrit POC 42.0 37.0 - 47.0 % BT [facility]IN-ST[facility] 1 GFR, Estimated >60 mL/min/1.73 m2 BT MAIN-STATION 1 GFR, Estim, Afr-Am >60 mL/min/1.73 m2 BT MAIN-STATION 1 Performing Organization Address City/State/Zipcode Phone Number MISYS BT [facility]IN-STATION 1 * CBC/DIFF (02/14/2018 7:40 PM) WBC 12.9 (H) 4.5 - 11.0 K/uL BT MAIN-STATION 2 RBC 4.22 4.20 - 5.40 M/uL BT MAIN-STATION 2 Hemoglobin 14.1 12.0 - 16.0 g/dL BT MAIN-STATION 2 Hematocrit 41.9 37.0 - 47.0 % BT MAIN-STATION 2 MCV 99 (H) 82 - 92 fL BT MAIN-STATION 2 MCH 33.4 (H) 27.0 - 32.0 pg BT MAIN-STATION 2 MCHC 33.7 32.0 - 36.0 g/dL BT MAIN-STATION 2 RDW 44.7 36.4 - 46.3 fL BT MAIN-STATION 2 Platelet 334 150 - 400 K/uL BT MAIN-STATION 2 Mean Platelet Volume 9.9 9.4 - 12.4 fL BT MAIN-STATION 2 Percent NRBC 0.0 BT MAIN-STATION 2 Absolute NRBC 0.00 BT MAIN-STATION 2 Neutrophil 56.0 34.0 - 70.0 % BT MAIN-STATION 2 Lymphocyte 39.0 20.0 - 50.0 % BT MAIN-ST[facility] 2 Monocyte 4.0 (L) 5.0 - 12.0 % BT MAIN-STATION 2 Eosinophil 1.0 0.7 - 5.0 % BT MAIN-STATION 2 Basophil None seen 0.1 - 1.2 % BT MAIN-STATION 2 Neutrophil, Abs 7.21 (H) 1.56 - 6.13 K/uL BT MAIN-STATION 2 Lymphocyte, Abs 5.02 (H) 1.18 - 3.74 K/uL BT MAIN-STATION 2 Monocyte, Abs 0.51 (H) 0.24 - 0.36 K/uL BT MAIN-STATION 2 Eosinophil, Abs 0.13 0.04 - 0.36 K/uL BT MAIN-STATION 2 Basophil, Abs None seen 0.01 - 0.08 K/uL BT MAIN-STATION 2 Specimen Blood Performing Organization Address City/State/Zipcode Phone Number MISYS BT MAIN-STATION 2 after 04/17/2017
--- OUTSIDE RECORDS SUMMARY | 2018-04-18 13:50 | XMS REPORT ---
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 Allergies, Adverse Reactions, Alerts Allergy Name Allergy Type Status Severity Reaction(s) Onset Date Inactive Date Treating Clinician Comments ketorolac DA Active U 2017-07-17 00:00:00 divalproex sodium DA Active U 2017-02-21 00:00:00 metoprolol DA Active U 2017-02-21 00:00:00 carbamazepine DA Active SV 2017-02-20 00:00:00 oxcarbazepine DA Active SV 2017-02-20 00:00:00 phenytoin DA Active [place] 2015-12-09 00:00:00 celecoxib DA Active SV 2015-12-09 00:00:00 PORK DA Active [place] 2013-08-16 00:00:00 Medications This patient has no known medications. Encounters Start Date/Time End Date/Time Encounter Type Admission Type Attending Clinicians Care Facility Care Department Encounter ID 2018-04-15 00:00:00 2018-04-15 00:00:00 Outpatient [facility] [id number] 2018-02-15 19:29:45 2018-02-15 19:29:[address] [facility] [id number] 2018-02-14 19:59:47 2018-02-14 19:59:[address] [facility] [id number] 2018-02-14 19:57:13 2018-02-14 19:57:[address] [facility] [id number] 2018-02-14 19:38:27 2018-02-14 19:38:27 Emergency [facility] [id number] 2017-06-20 00:00:00 2017-06-20 00:00:[address] [facility] [id number] 2017-05-31 00:00:00 2017-05-31 00:00:[address] [facility] [id number] 2017-05-24 14:49:38 2017-05-24 14:49:[address] [facility] [id number] 2017-05-24 00:00:00 2017-05-24 00:00:[address] [facility] [id number] 2017-05-24 00:00:00 2017-05-24 00:00:[address] [facility] [id number] 2017-05-17 00:00:00 2017-05-17 00:00:[address] [facility] [id number] 2017-05-10 13:26:16 2017-05-10 13:26:[address] [facility] [id number] 2017-05-10 00:00:00 2017-05-10 00:00:[address] [facility] [id number] 2017-05-10 00:00:00 2017-05-10 00:00:[address] [facility] [id number] 2017-05-10 00:00:00 2017-05-10 00:00:[address] [facility] [id number] 2017-04-30 00:00:00 2017-04-30 00:00:[address] [facility] [id number] 2017-04-12 00:00:00 2017-04-12 00:00:[address] [facility] [id number] 2017-04-08 00:00:00 2017-04-08 00:00:[address] [facility] [id number] 2017-03-25 00:00:00 2017-03-25 00:00:[address] [facility] [id number] 2017-03-22 15:05:35 2017-03-22 15:05:[address] [facility] [id number] 2017-03-15 00:00:00 2017-03-15 00:00:[address] [facility] [id number] 2017-03-01 00:00:00 2017-03-01 00:00:[address] [facility] [id number] 2017-02-22 15:49:28 2017-02-22 15:49:[address] [facility] [id number] 2017-02-07 00:00:00 2017-02-07 00:00:[address] [facility] [id number] 2017-02-01 00:00:00 2017-02-01 00:00:[address] [facility] [id number] 2017-01-25 00:00:00 2017-01-25 00:00:[address] [facility] [id number] 2017-01-04 00:00:00 2017-01-04 00:00:[address] [facility] [id number] 2016-12-28 15:31:07 2016-12-28 15:31:[address] [facility] [id number] 2016-12-28 00:00:00 2016-12-28 00:00:[address] [facility] [id number] 2016-11-30 14:57:54 2016-11-30 14:57:[address] [facility] [id number] 2016-11-02 15:11:23 2016-11-02 15:11:[address] [facility] [id number] 2013-04-06 09:20:00 2013-04-06 09:20:00 Outpatient [facility] [id number]
[2018-04-18] MEDS ORDERED: LEVETIRACETAM 500MG/5ML VIAL 500 MG in SODIUM CHLORIDE 0.9% 100 ML 100 ML IV ONE (14:45)
[2018-04-18] MEDS ORDERED: LEVETIRACETAM 500 MG/5 ML VIAL IV ONE (14:52)
--- NOTE | 2018-04-18 16:18 | Diagnostic Imaging Report ---
EXAMINATION: Head CT HISTORY: Seizure COMPARISON: None. TECHNIQUE: Multidetector axial images were obtained without contrast from the foramen magnum to the vertex . The images were reconstructed using brain and bone algorithms. Thin section brain images were reformatted into coronal and sagittal planes. Image quality: Motion/streaking artifact limits the evaluation of the skull base and posterior cranial fossa. Dose modulation, iterative reconstruction, and/or weight based adjustment of the mA/kV was utilized to reduce the radiation dose to as low as reasonably achievable. FINDINGS: Parenchyma: 1. No abnormal densities. 2. No mass or hemorrhage. No CT evidence of acute territorial vascular insult. Extra-axial spaces:No abnormal density. No extra-axial fluid collections Brain volume: Normal for age. Ventricles: No hydrocephalus or displacement. Arteries: No density suggestive of thrombus. Dural sinuses: No abnormal density. Extra-axial spaces: No abnormal density. Foramen magnum: No mass, Chiari malformation, or basilar invagination. Sella: No obvious mass. Paranasal/mastoid sinuses: Imaged portions unremarkable. Skull/Scalp: No lytic or blastic lesions. No fractures. IMPRESSION: Normal head CT. Signed by: Dr. Shala Albarado M.D. on 04/18/2018 4:15 PM
[2018-04-18] MEDS ORDERED: SODIUM CHLORIDE 0.9% 500ML 500 ML IV ONE (16:45)
[2018-04-18] MEDS ORDERED: METOCLOPRAMIDE HCL 10 MG/2ML VIAL IV ONE (16:45)
[2018-04-18] MEDS ORDERED: DIPHENHYDRAMINE HCL INJ 50 MG/ML VIAL IV ONE (16:45)
[2018-04-18] MEDS ORDERED: VALPROATE SOD INJ 500 MG in SODIUM CHLORIDE 0.9% 100 ML 100 ML IV SCH (21:00)
== END 2018-04-18 19:05 ==
LOC: ER 13:47
DX: G40.409 Other generalized epilepsy and epileptic syndromes, not intractable, without status epilepticus (principal); F43.10 Post-traumatic stress disorder, unspecified; F31.9 Bipolar disorder, unspecified
CPT/HCPCS: 70450; 99284; J1200; J2765; J7040

== ENCOUNTER 2018-05-07 18:49 | Emergency (ER) | payer OTHER ==
[~2018-05-07] VITALS: Ht 157.5 cm; Wt 77.1 kg
--- OUTSIDE RECORDS SUMMARY | 2018-05-07 18:52 | XMS REPORT | Clinical Summary ---
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 after 05/06/2017 Results * CT CHEST PE PROTOCOL (02/15/2018 7:52 PM) Impressions Performed At IMPRESSION: [facility] No pulmonary emboli. This study was interpreted [...] MD, 02/15/2018 8:25 PM Performing Organization Address [facility] [place] Phone Number SMS * D-DIMER (02/15/2018 4:56 PM) D-Dimer 0.65 ug/mL,FEU BT MAIN-STATION 3 Comment: Values of quantitative d-Dimer less than 0.40 ug/mL FEU have been reported to be associated with a low probability of deep vein thrombosis/pulmonary embolism. This test alone should not be used to rule out DVT/PE. Specimen Blood Performing Organization Address [facility] [place] Phone Number MISYS BT MAIN-STATION 3 * [...] mmol/L BT MAIN-STATION 1 Performing Organization Address [facility] [place] Phone Number MISYS BT MAIN-STATION 1 * TSH (02/15/2018 12:20 PM) TSH 1.44 0.57 - 3.74 uIU/mL BT MAIN-STATION 1 Specimen Blood Performing Organization Address [facility] [place] Phone Number MISYS BT MAIN-STATION 1 * FREE T4 (02/15/2018 12:20 PM) Free T4 0.79 0.61 - 1.18 ng/dl BT MAIN-STATION 1 Comment: females: 1st Trimester-0.52-1.10 ng/dL 2nd Trimester=0.45-0.99 ng/dL 3rd Trimester=0.48-0.95 ng/dL Specimen Blood Performing Organization Address [facility] [place] Phone Number MISYS BT MAIN-STATION 1 * GLUCOSE POC (02/15/2018 9:32 AM) Only the most recent of 2 results within the time period is included. Glucose POC 90 74 - 106 mg/dL BT MAIN-STATION 1 Performing Organization Address [facility] [place] Phone Number MISYS BT MAIN-STATION 1 * UA CHEMISTRIES (02/15/2018 8:40 AM) Only the most recent of 2 results within the time period is included. Color Yellow BT MAIN-STATION 3 Clarity Hazy BT MAIN-STATION 3 Spec [place] 1.025 1.001 - 1.035 BT MAIN-STATION 3 [...] MAIN-STATION 3 Specimen Urine Performing Organization Address [facility] [place] Phone Number MISYS BT MAIN-STATION 3 * URINE CULTURE (02/15/2018 8:35 AM) Spec Description Clean catch urine BT MICROBIOLOGY Order Comments None BT MICROBIOLOGY Culture Skin portia organisms BT MICROBIOLOGY Report Status Final 02/17/2018 BT MICROBIOLOGY Specimen Urine clean catch Performing Organization Address [facility] [place] Phone Number MISYS BT MICROBIOLOGY * POCT [...] (02/14/2018 7:55 PM) Impressions Performed At IMPRESSION: SMS No acute thoracic abnormality. Dictated By: Afshin Herndon DO, 02/14/2018 10:25 PM I have reviewed the study and agree with the findings in this report. Signed By: Ladan Velarde MD, 02/14/2018 10:59 PM Narrative Performed At EXAM: XRAY CHEST 1 VIEW, portable AP [facility] DATE: 02/14/2018 7:59 PMTime stamp on exam: [...] MD, 02/14/2018 10:59 PM Performing Organization Address [facility] Phone Number SMS * BMP POC (02/14/2018 [...] m2 BT MAIN-STATION 1 Performing Organization Address [facility] [place] Phone Number MISYS BT MAIN-STATION 1 * [...] Performing Organization Address City/State/Zipcode Phone Number MISYS MAIN-STATION 2 after 05/06/2017
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
== END 2018-05-07 22:30 | disposition left against medical advice (07) ==
LOC: ER 18:49
DX: R56.9 Unspecified convulsions (principal)